=== PATIENT | male | born 1990 | race Caucasian/White ===

== ENCOUNTER 2017-01-14 10:35 | Inpatient (IN) | payer OTHER ==
[~2017-01-14] VITALS: Ht 182.9 cm; Wt 70.8 kg
[2017-01-14 12:15] VITALS: BP 136/89
--- NOTE | 2017-01-14 12:30 | NUR ---
PRE-ASSESSMENT: PT IS A 26 YO MALE. FACE IS FLUSHED. GAIT IS STEADY. HE REPORTS PMH ANXIETY,INSOMNIA AND DEPRESSION. HE STATES HE HAD A SEIZURE FROM BZO W/D 4 YRS AGO. HE REPORTS DRINKING VODKA 750 ML DAILY OR 2-3 BOTTLES OF WINE DAILY. LAST DRANK A HALF BOTTLE OF WINE AT 1100. HE ALSO REPORTS TAKING 0.5 MG FOR ATIVAN FOR 6 DAYS. LAST USED 0.5 MG TODAY AT 1030. MEDS BROUGHT IN FOR SLEEP,ANXIETY AND DEPRESSION. WILL ASSESS PT UPSTAIRS ON UNIT.
[2017-01-14] MEDS ORDERED: LORAZEPAM 2 MG/1 ML VIAL IM PRN (14:00)
[2017-01-14] MEDS ORDERED: MIRALAX 17 GM POWD.PACK PO PRN (14:00)
[2017-01-14] MEDS ORDERED: LOPERAMIDE HCL 2 MG CAPSULE PO PRN ×2 (14:00)
[2017-01-14] MEDS ORDERED: THIAMINE HCL 200 MG/2 ML VIAL IM ONE (14:00)
[2017-01-14] MEDS ORDERED: MAG HYDROX/AL HYDROX/SIMETH 30 ML LIQUID UDC PO PRN (14:00)
[2017-01-14] MEDS ORDERED: DICYCLOMINE HCL 20 MG TABLET PO PRN (14:00)
[2017-01-14] MEDS ORDERED: NICOTINE POLACRILEX 4 MG GUM-PK OF TEN BC PRN (14:00)
[2017-01-14] MEDS ORDERED: LORAZEPAM 1 MG TABLET PO PRN ×2 (14:00)
[2017-01-14] MEDS ORDERED: DOCUSATE SODIUM 250 MG CAPSULE PO PRN (14:00)
[2017-01-14] MEDS ORDERED: ONDANSETRON 4 MG/2 ML VIAL IM PRN (14:00)
[2017-01-14 14:06] LABS: *AMPHETAMINE, URINE NEGATIVE (NEGATIVE); *BARBITURATE, URINE NEGATIVE (NEGATIVE); *CANNABINOID, URINE NEGATIVE (NEGATIVE); *COCCAINE, URINE NEGATIVE (NEGATIVE); *OPIATE, URINE NEGATIVE (NEGATIVE); *PHENCYCLIDINE SCREEN,URINE NEGATIVE (NEGATIVE)
--- NOTE | 2017-01-14 14:40 | NUR ---
ADMISSION: A 26 YO MALE ADMITTED FOR SUPERVISED DETOX OF ETOH . SKIN WARM DRY AND INTACT. FACE FLUSHED.HE REPORTS DRINKING VODKA 750 ML DAILY OR 2-3 BOTTLES OF WINE DAILY. LAST DRANK A HALF BOTTLE OF WINE AT 1100. HE ALSO REPORTS TAKING 0.5 MG FOR ATIVAN FOR 6 DAYS. LAST USED 0.5 MG TODAY AT 1030.HE HAS BEEN DRINKING AND USING IN THIS PATTERN FOR 6 WEEKS. HE STATES HE SMOKES POT ON OCCASION. HE REPORTS HE HAD 2 YEARS OF SOBRIETY AND HAS BEEN SOBER ON AND OFF FOR THE LAST YEAR. HIS LAST TX CENTER WAS IN MAY AT [facility] IN [place]. PT IS DISHEVELED. HE IS ODOROUS OF ETOH. HE STATES HE IS INTOXICATED AND IS NOT EXPERIENCING S/S OF W/D OF YET. HE REPORTS HX OF INSOMNIA,ANXIETY AND DEPRESSION. HE DENIES S/I AND H/I. HE STATES HE TAKES WELLBUTRIN XL ,VYVANSE ,REMERON AND WAS TAKING LYRICA FOR ANXIETY. HE BROUGHT MEDS IN WITH HIM TO FACILITY. HE STATES HE WAS LIVING AT A NON STRUCTURED SOBER LIVING THAT KNEW HE WAS DRINKING. ENCOURAGED INCREASED FLUIDS. ORIENTED PT TO STAFF AND UNIT. WILL PROVIDE SAFE AND SUPPORTIVE ENVIRONMENT.MD ASSESSED PT WILL MEDICATE ACCORDINGLY PER MD.
[2017-01-14 15:29] LABS: BASOPHILS % (AUTO) 0.3 % (0.0-2.0); BILIRUBIN,TOTAL 0.4 mg/dL (0.2-1.0); CREATININE 0.8 mg/dL (0.6-1.3); EOSINOPHILS % (AUTO) 0.5 % (0.0-7.0); HEMATOCRIT 43.1 % (40-50); HEMOGLOBIN 14.9 G/DL (14.0-18.0); LYMPHOCYTES # (AUTO) 2.3 K/UL (0.8-4.8); LYMPHOCYTES % (AUTO) 44.3 % (20.5-51.5); MAGNESIUM 1.7 mg/dL (1.8-2.4); MEAN CORPUSCULAR HEMOGLOBIN 29.9 UUG (27.0-31.0); MEAN CORPUSCULAR HGB CONC 35 g/dL (32.0-37.0); MEAN CORPUSCULAR VOLUME 86.8 FL (82.0-92.0); MONOCYTES # (AUTO) 0.5 K/UL (0.1-1.30); MONOCYTES % (AUTO) 9.2 % (0.0-11.0); NEUTROPHILS # (AUTO) 2.5 K/UL (1.8-8.9); NEUTROPHILS % (AUTO) 45.7 % (38.5-71.5); PLATELET COUNT (AUTO) 154 K/UL (150-450); POTASSIUM 4.3 mmol/L (3.5-5.1); RED BLOOD CELL COUNT(AUTO) 4.96 MIL/UL (4.7-6.1); TOTAL PROTEIN, SERUM 7.3 g/dL (6.4-8.2); WHITE BLOOD COUNT (AUTO) 5.3 K/UL (4.0-11.2)
[2017-01-14] MEDS: LORAZEPAM 1 MG TABLET PO SCH ×2 (16:31→20:32)
[2017-01-14] MEDS ORDERED: LORAZEPAM 1 MG TABLET PO ONE (18:00)
--- NOTE | 2017-01-14 19:16 | NUR ---
START OF SHIFT NOTE: Patient is 26 year old male admitted to [facility] on 01/14/2017 for Alcohol dependence, continue ordered 5 Day Ativan Taper. Patient tolerated well without ASE. Patient remains compliant with treatment, medications, and diet regime. Patient reports allergy to Penicillin. Patient is on Full Code, Regular Diet, Fall and Seizures Precautions. 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 Upon endorsement, patient is in his room alert and oriented x4. Speech is soft and clear. Patient denies SI/HI. CIWA 12. Patient presented with moderate anxiety, agitation, nervousness, restlessness, enlarged pupils, generalized body aching, headache, sweating, and tremors. VS: T: 98.3, HR: 72, BP: 144/86, RR: 19, RA O2Sat 98%, generalized body aches pain level"9" by 0-10 adult pain scale. Respirations are unlabored and even. Patient denies chest pain and SOB. Lung Sounds are clear thoroughly. Abdomen is soft and non-tender. Bowel Sounds are active in all 4 quadrants. Skin is intact, warm and dry to touch. All needs met. Safety measures in place: Call light within reach, bed in lowest position and locked, padded rails up x2. Patient is endorsed by day shift nurse, report received. Will continue to monitor closely.
--- NOTE | 2017-01-14 19:16 | NUR ---
END OF SHIFT: NEWLY ADMITTED PT RESTING IN BED. MEDICATED WITH ATIVAN 2 MG PO X 2. FIRST DOSE INEFFECTIVE AT 1645. NEXT DOSE EFFECTIVE. HE IS LAYING IN BED AND STATES HE FEELS A LITTLE BETTER. LAST CI 11. PSYCH MD ASSESSED PT AND RECONCILED MEDS. WILL PASS SHIFT REPORT TO ONCOMING NIGHT NURSE.
[2017-01-14 20:00] VITALS: BP 144/86
[2017-01-14] MEDS: ACETAMINOPHEN 325 MG TABLET PO PRN (20:32)
[2017-01-14] MEDS: diphenhydrAMINE 50 MG CAPSULE PO PRN (20:32)
--- NOTE | 2017-01-14 20:32 | NUR ---
PRN BENADRYL 50 MG 1 TAB PO AND PRN TYLENOL 650 MG 2 TAB PO ADMINISTRATION Patient c/o insomnia and generalized body aches pain level "9/10". PRN Benadryl 50 mg 1 tab PO for insomnia and PRN Tylenol 650 mg 2 tab PO for pain administrated as ordered with full glass of water. Patient tolerated well. All needs met. Safety measures in place: Call light within reach, bed in lowest position and locked, padded rails up x2. Patient is endorsed by day shift nurse, report received. Will continue to monitor closely.
[2017-01-14] MEDS: MIRTAZAPINE 15 MG TABLET PO SCH (20:33)
--- NOTE | 2017-01-14 20:36 | NUR ---
PRN ZOFRAN (ONDANSETRON) 4 MG/2ML IM ADMINISTRATION PRN ZOFRAN (ONDANSETRON) 4 MG/2ML IM FOR NAUSEA AND VOMITING X4 ADMINISTRATED ON RIGHT DELTOID MUSCLE. PATIENT TOLERATED WELL. ALL NEEDS MET. SAFETY MEASURES IN PLACE: CALL LIGHT WITHIN REACH, BED IN LOWEST POSITION AND LOCKED, PADDED RAILS UP X2. WILL TO MONITOR CLOSELY.
[2017-01-14] MEDS ORDERED: MAGNESIUM OXIDE 400 MG TABLET PO ONE (21:00)
--- NOTE | 2017-01-14 21:16 | NUR ---
RE-ASSESSMENT PATIENT DENIES NAUSEA AND VOMITING. PRN ZOFRAN (ONDANSETRON) 4 MG/2ML IM ADMINISTRATED FOR NAUSEA AND VOMITING X4 @2035 WAS EFFECTIVE. ALL NEEDS MET. SAFETY MEASURES IN PLACE: CALL LIGHT WITHIN REACH, BED IN LOWEST POSITION AND LOCKED, PADDED RAILS UP X2. WILL TO MONITOR CLOSELY.
--- NOTE | 2017-01-14 21:32 | NUR ---
RE-ASSESSMENT Patient is sleeping. Respirations even and unlabored. RR 17. PRN Benadryl 50 mg 1 capsule PO for insomnia and PRN Tylenol 650 mg 2 tab PO for pain administrated @2031 were effective. All needs met. Safety measures on place. Call light within reach, bed in lowest position and locked, padded rails up bilaterally rails up bilaterally. Will continue to monitor closely.
[2017-01-15] VITALS: BP 127/82
[2017-01-15 04:00] VITALS: BP 149/92
[2017-01-15 07:06] LABS: HEPATITIS B SURFACE AG Negative (Negative)
--- NOTE | 2017-01-15 07:06 | NUR ---
END OF SHIFT NOTE: Patient is 26 year old male admitted to [facility] on 01/14/2017 for medically supervised safety withdrawal from Alcohol, continue 5 Day Ativan Taper. Patient tolerated well without ASE. Patient reports allergy to Penicillin. Patient is on Full Code, Regular Diet, Fall and Seizures Precautions. PMH: Anxiety, Depression, Alcohol dependence, Insomnia, Withdrawal Induced from Librium Seizures History (2013. Last CIWA 5 @0400. Patient presented with anxiety, agitation, nervousness, restlessness, enlarged pupils, generalized body aching, headache, sweating, and tremors. CIWA taken when patient 's awake. Last VS @0400: T:98.7, BP: 149/92, HR: 77, RA SPO2: 100%, RR 16, head and shoulders pain level "6/10". Patient denies SI/HI. Respirations unlabored and even. Patient denied SOB and chest pain. Abdomen is soft and non-tender. Skin is intact, warm, and dry to touch. PRN Benadryl 50 mg 1 capsule PO for insomnia administrated @2031, PRN Tylenol 650 mg 2 tab PO for pain administrated @2031, and PRN Zofran (Ondansetron) 4 mg/2ml IM for nausea and vomiting x4 administrated @2035, were effective. Patient remains compliant with treatment, medications, and diet regime. Patient slept 8 hours, intake 1,000 ml, voided x2, stool x1. Encouraged fluids intake as tolerated. Encouraged to attending groups activities. All needs met. Safety measures on place. Call light within reach, bed in lowest position and locked, padded rails up bilaterally. Patient endorsed to day shift nurse. Report given.
--- NOTE | 2017-01-15 07:36 | NUR ---
START OF SHIFT Received report from caustic cresylate shift superintendent nurse. 26 year old male patient admitted on 01/14/17 for ETOH withdrawals. Pt has been started on a 5 day Ativan taper and is tolerating well. S/S of withdrawals are being managed by ordered medications. Pt reports hx of insomnia, anxiety and depression. Most recent CIWA is 5. PRN Zofran, Tylenol and Benadryl administered and effective. V/S remain WNL. Pt slept for 8 hours. All needs met at this time, safety measures are in place, will continue to monitor.
[2017-01-15 08:12] VITALS: BP 148/95
[2017-01-15] MEDS ORDERED: PREGABALIN 100 MG CAPSULE PO SCH (09:00)
[2017-01-15] MEDS ORDERED: PREGABALIN 50 MG CAPSULE PO SCH (09:00)
[2017-01-15] MEDS ORDERED: TUBERCULIN,PURIF.PROT.DERIV. 5 TU/0.1 ML TEST ID ONE (09:00)
[2017-01-15] MEDS ORDERED: PREGABALIN 25 MG CAPSULE PO SCH (09:00)
[2017-01-15] MEDS: THIAMINE HCL 100 MG TABLET PO SCH (09:24)
[2017-01-15] MEDS: FOLIC ACID 1 MG TABLET PO SCH (09:25)
[2017-01-15] MEDS: buPROPion XL 150 MG TAB.SR.24H PO SCH (09:25)
[2017-01-15] MEDS: MULTIVITAMINS,THERAPEUTIC TABLET PO SCH (09:25)
[2017-01-15] MEDS: LORAZEPAM 1 MG TABLET PO SCH ×3 (09:25→20:25)
[2017-01-15] MEDS: ONDANSETRON ODT 4 MG TAB.RAPDIS SL PRN ×2 (09:27→10:40)
--- NOTE | 2017-01-15 09:27 | NUR ---
PRN ZOFRAN Pt reports nausea but no emesis noted. PRN Zofran administered as ordered, will reassess.
--- NOTE | 2017-01-15 09:57 | NUR ---
REASSESSMENT Pt reports Zofran was effective.
[2017-01-15] MEDS ORDERED: MIRT30TA PO (11:32)
[2017-01-15] MEDS ORDERED: LISD50CA2 PO (11:32)
[2017-01-15] MEDS ORDERED: BUPR300T52 PO (11:32)
[2017-01-15 12:46] VITALS: BP 138/84
[2017-01-15] MEDS: IBUPROFEN 400 MG TABLET PO PRN (15:04)
--- NOTE | 2017-01-15 15:05 | NUR ---
PRN Motrin Pt c/o 08/23 headache, Motrin PO administered as ordered. Will reassess.
--- NOTE | 2017-01-15 16:05 | NUR ---
REASSESSMENT Pt denies headache and reports medication was effective.
[2017-01-15 17:43] VITALS: BP 131/88
--- NOTE | 2017-01-15 19:14 | NUR ---
START OF SHIFT NOTE: Patient is 26 year old male admitted to [facility] on 01/14/2017 for Alcohol dependence Patient continues 5 Day Ativan Taper, and tolerated well without ASE. Patient remains compliant with treatment, medications, and diet regime. Patient reports allergy to Penicillin. Patient is on Full Code, Regular Diet, Fall and Seizures Precautions. PMH: Anxiety, Depression, Alcohol dependence, Insomnia, Seizures History (2012) r/t withdrawal Induced from Librium. Upon endorsement, patient' assessed in his room. Patient is alert and oriented x4. Patient is cooperative. Speech is clear and soft. CIWA 8: Patient's presented with anxiety, agitation, nervousness, restlessness, enlarged pupils, generalized body aching, barely sweating, and tremors. Patient denies SI/HI. VS: T: 99.1, HR: 95, BP: 146/87, RR: 18, RA O2Sat 98%, generalized body aches pain level: "7" by 0-10 adult pain scale. Respirations are unlabored and even. Patient denies chest pain and SOB. Lung Sounds are clear thoroughly. Abdomen is soft and non-tender. Bowel Sounds are active in all 4 quadrants. Patient denies N/V/D. Skin is intact, warm and dry to touch. Encouraged fluids intake as tolerated. Encouraged to attend groups activities. All needs met. Safety measures in place: Call light within reach, bed in lowest position and locked, padded rails up x2. Patient is endorsed by day shift nurse, report received. Will continue to monitor closely.
--- NOTE | 2017-01-15 19:14 | NUR ---
END OF SHIFT Endorsed to night nurse. 26 year old male patient admitted on 01/14/17 for ETOH withdrawals. Pt has been started on a 5 day Ativan taper and is tolerating well. S/S of withdrawals are being managed by ordered medications. Pt reports hx of insomnia, anxiety and depression. Most recent CIWA is 7. PRN Zofran, and Motrin administered and effective. V/S remain WNL. Pt rested in bed most of the day, encouraged to attend groups and activities. All needs met at this time, safety measures are in place, night nurse will continue to monitor.
[2017-01-15 20:00] VITALS: BP 146/87
[2017-01-15] MEDS: MIRTAZAPINE 15 MG TABLET PO SCH (20:24)
[2017-01-15] MEDS: PREGABALIN 50 MG CAPSULE PO SCH (20:24)
[2017-01-15] MEDS: diphenhydrAMINE 50 MG CAPSULE PO PRN (22:26)
--- NOTE | 2017-01-15 22:26 | NUR ---
PRN BENADRYL 50 MG 1 TAB PO ADMINISTRATION Patient c/o insomnia. PRN Benadryl 50 mg 1 tab PO for insomnia administrated as ordered with full glass of water. Patient tolerated well. All needs met. Safety measures in place: Call light within reach, bed in lowest position and locked, padded rails up x2. Patient is endorsed by day shift nurse, report received. Will continue to monitor closely. Addendum: 01/16/17 at 0027 by RAFIQ SNIDER RN PRN Benadryl 50 mg 1 cap. PO
--- NOTE | 2017-01-15 23:26 | NUR ---
RE-ASSESSMENT Patient is sleeping. Respirations even and unlabored. RR 16. PRN Benadryl 50 mg 1 cap. PO for insomnia administrated @2226 was effective. All needs met. Safety measures on place. Call light within reach, bed in lowest position and locked, padded rails up bilaterally rails up bilaterally. Will continue to monitor closely.
[2017-01-16] VITALS: BP 133/79
[2017-01-16] MEDS: IBUPROFEN 400 MG TABLET PO PRN ×2 (00:51→18:40)
--- NOTE | 2017-01-16 00:51 | NUR ---
PRN MOTRIN 400 MG 1 TAB. PO ADMINISTRATION Patient c/o back and shoulders pain. Patient reports pain level "7/10"and asked aid. PRN Motrin 400 mg 1 tab. PO administrated as ordered with full glass of water. Patient tolerated well. All needs met. Safety measures on place. Call light within reach, bed in lowest position and locked, padded rails up bilaterally rails up bilaterally. Will continue to monitor closely.
--- NOTE | 2017-01-16 01:51 | NUR ---
RE-ASSESSMENT Patient is sleeping. Respirations even and unlabored. RR 14. PRN Motrin 400 mg 1 tab PO administrated to patient @0051 for back and shoulders pain was effective. All needs met. Safety measures on place. Call light within reach, bed in lowest position and locked, padded rails up bilaterally. Will continue to monitor closely.
[2017-01-16 04:00] VITALS: BP 131/76
--- NOTE | 2017-01-16 06:58 | NUR ---
END OF SHIFT NOTE: Patient is 26 year old male admitted to [facility] on 01/14/2017 for medically supervised safety withdrawal from Alcohol, continue 5 Day Ativan Taper. Patient tolerated well without ASE. Patient reports allergy to Penicillin. Patient is on Full Code, Regular Diet, Fall and Seizures Precautions. Last CIWA decreased from 8 @2000 to 3 @0400: Patient presented with anxiety, agitation, nervousness, restlessness, body aching, sweating, and tremors. CIWA taken when patient 's awake. Last VS @0400: T:98.3, BP: 131/76, HR: 69, RA SPO2: 98%, RR 16, back and shoulders pain level "6/10". Patient denies SI/HI. Respirations unlabored and even. Patient denied SOB and chest pain. Abdomen is soft and non-tender. Skin is intact, warm, and dry to touch. PRN Benadryl 50 mg 1 capsule PO for insomnia administrated @2226 and PRN Motrin 400 mg 1 tab PO for back and shoulders pain administrated @0051 were effective. Patient remains compliant with treatment, medications, and diet regime. Patient slept 9 hours, intake 958 ml, voided x3. Encouraged fluids intake as tolerated. Encouraged to attending groups activities. All needs met. Safety measures on place. Call light within reach, bed in lowest position and locked, padded rails up bilaterally. Patient endorsed to day shift nurse. Report given.
--- NOTE | 2017-01-16 07:59 | NUR ---
START OF SHIFT NOTE Received report from night nurse, 26 year old female patient admitted for ETOH withdrawal. Pt cont on a 5 day Ativan taper. Pt reports PMH of insomnia, anxiety and depression. Per endorsement pt received PRN Benadryl/Motrin effective per night nurse, last CIWA-3, slept for 9 hours. Patient received awake, alert and oriented x4, Educated patient regarding plan of care for the day and medication regimen with good verbal understanding. Safety measures in place. call light with in reach, will continue to monitor.
[2017-01-16 08:00] VITALS: BP 130/80
[2017-01-16] MEDS: FOLIC ACID 1 MG TABLET PO SCH (09:15)
[2017-01-16] MEDS: LORAZEPAM 1 MG TABLET PO SCH ×4 (09:16→21:04)
[2017-01-16] MEDS: THIAMINE HCL 100 MG TABLET PO SCH (09:16)
[2017-01-16] MEDS: buPROPion XL 150 MG TAB.SR.24H PO SCH (09:16)
[2017-01-16] MEDS: MULTIVITAMINS,THERAPEUTIC TABLET PO SCH (09:16)
[2017-01-16] MEDS: PREGABALIN 50 MG CAPSULE PO SCH ×2 (10:06→21:05)
--- NOTE | 2017-01-16 10:16 | NUR ---
Therapist prompted client about group times. Client plans to start attending group therapy today.
[2017-01-16 12:00] VITALS: BP 132/76
[2017-01-16 16:00] VITALS: BP 128/72
--- NOTE | 2017-01-16 18:40 | NUR ---
ATIVAN ONE TIME Patient reported anxiety, agitation, tremors, nausea, Sweats, CIWA score noted -9, medicated patient with PRN Motrin 400mg Po and Ativan 2mg x1 order. Will cont to monitor and reassess. Addendum: 01/16/17 at 1913 by NATHANIEL MALONE LVN Patient also c/o of back ache 06/23.
[2017-01-16] MEDS ORDERED: LORAZEPAM 1 MG TABLET PO ONE (18:45)
--- NOTE | 2017-01-16 19:26 | NUR ---
END OF SHIFT NOTE Patient cont on 5 days Ativan taper tolerating well. Patient presented with anxiety agitation, sweats, nausea, Scheduled medication administered noted to be effective. Patient received PRN Motrin/ Ativan one time. Pt Encouraged Po fluids as tolerated. Pt's last CIWA score was 4 at 1600. Vital signs WNL. All needs met. Patient attended groups and activities. Safety measures in place, call light within reach. Pt endorsed to night nurse in stable condition. Endorse to night nurse reassess the patient for Ativan and Motrin.
--- NOTE | 2017-01-16 19:40 | NUR ---
REASSESSMENT PRN MEDICATIONS: Patient unavailable at this time for reassessment, as he is now in PM group session.
[2017-01-16 20:00] VITALS: BP 147/102
--- NOTE | 2017-01-16 20:00 | NUR ---
1999 Patient awake, alert and just returning to his room # [id number] from [facility] in recreation room. Gait is brisk, steady. Patient responds to nurse's greeting and introduction, with good eye contact and, " Hi, I'm doing okay. How are you?" Patient is oriented to person, place, day, date, time and his personal situation. Patient's color is pink and his skin is clean, warm, dry and intact. Patient states that he is eating his regular diet meal trays " okay" and taking various fluids ad bel with no gastric issues noted presently. Patient denies any specific discomforts, however he states that emotionally, he is feeling badly, because, " My fiancee broke up with me today, because I did something bad, that I shouldn't have and he is really pissed off". Patient states further, " I've never been through anything like this before". Patient allowed to ventilate his feelings and then positive encouragement and calm reassurances given to him, as he began to cry a bit. Patient states, " Well, I know him and it will be okay eventually. For now though, my sobriety is more important to me, you know?" Vital signs are: 97.8-87-18 147/102, O2 Sat 99%, CIWA 3 . Patient voices no requests for anything at this time. Patient was admitted on 01/14/17 for Alcohol withdrawal and he is currently on a 5-Day Ativan medication taper, which he is apparently tolerating well thus far. Fall/seizure precautions continue. Bed is locked and in lowest position, bed rails are up X 2 and call light on bed.
[2017-01-16] MEDS: MIRTAZAPINE 15 MG TABLET PO SCH (21:05)
[2017-01-16] MEDS: diphenhydrAMINE 50 MG CAPSULE PO PRN (21:05)
[2017-01-16] MEDS: ACETAMINOPHEN 325 MG TABLET PO PRN (21:05)
--- NOTE | 2017-01-16 21:05 | NUR ---
PRN MEDICATIONS: Prn Benadryl 50 mg p.o. given per request for sleep medication and Prn Tylenol 650 mg p.o. given per c/o back of head and neck pain, 7/10 pain scale. Patient states, "The motrin I had earlier, around six thirty, really didn't help that much. Maybe it went from a 8 to a 7 after I took it".
--- NOTE | 2017-01-16 22:05 | NUR ---
REASSESSMENT PRN MEDICATIONS: Patient is sleeping in low semi-fowlers position of comfort, with eyes closed and respirations quiet, even, unlabored at 12.
--- NOTE | 2017-01-17 | NUR ---
Patient sleeping soundly and does not wish to be awakened for V/S and CIWA to be done at this time. V/S, CIWA deferred.
--- NOTE | 2017-01-17 04:00 | NUR ---
Patient continues to sleep soundly with eyes closed and respirations even, unlabored at 12. V/S, CIWA deferred.
--- NOTE | 2017-01-17 06:30 | NUR ---
0630 Patient slept a total of 8 hours and he had 3 voids and no stools. Total intake was 1,000 ml p.o. Prn medications given noted separately per floor protocol. V/SS, afebrile, last CIWA 2 at 1999. Patient is presently sleeping comfortably in stable condition with eyes closed and respirations even at 12.
--- NOTE | 2017-01-17 07:43 | NUR ---
START OF SHIFT NOTE Received report from night nurse, 26 year old female patient admitted for ETOH dependence. Patient cont on a 5 day Ativan taper. Patient reports PMH of insomnia, anxiety and depression. Per endorsement pt received PRN Benadryl/Tylenol effective per night nurse, last CIWA-2, slept for 8 hours. Patient received awake, alert and oriented x4, Educated patient regarding plan of care for the day and medication regimen with good verbal understanding. Safety measures in place. call light with in reach, will continue to monitor.
[2017-01-17 08:00] VITALS: BP 133/75
[2017-01-17] MEDS: buPROPion XL 150 MG TAB.SR.24H PO SCH (09:11)
[2017-01-17] MEDS: LORAZEPAM 1 MG TABLET PO SCH ×3 (09:11→21:15)
[2017-01-17] MEDS: FOLIC ACID 1 MG TABLET PO SCH (09:11)
[2017-01-17] MEDS: PREGABALIN 50 MG CAPSULE PO SCH ×2 (09:11→21:15)
[2017-01-17] MEDS: THIAMINE HCL 100 MG TABLET PO SCH (09:12)
[2017-01-17] MEDS: MULTIVITAMINS,THERAPEUTIC TABLET PO SCH (09:16)
[2017-01-17 12:00] VITALS: BP 136/86
[2017-01-17] MEDS: CLONIDINE HCL 0.1 MG TABLET PO PRN ×2 (12:48→21:16)
--- NOTE | 2017-01-17 12:48 | NUR ---
PRN CLONIDINE Patient blood pressure noted 148/98, Medicated patient with PRN Clonidine 0.1mg Po as ordered. Will cont to monitor and reassess.
--- NOTE | 2017-01-17 13:48 | NUR ---
CLONIDINE REASSESSMENT Blood pressure noted 137/84 medication effective. Patient in stable condition.
[2017-01-17] MEDS ORDERED: INFLUENZA VACCINE 2017-2018 0.5 ML DISP.SYRIN IM ONE (15:15)
[2017-01-17 16:00] VITALS: BP 138/88
--- NOTE | 2017-01-17 19:11 | NUR ---
END OF SHIFT NOTE Patient cont on 5 days Ativan taper tolerating well. Patient presented with anxiety agitation, sweats, nausea, Scheduled medication administered noted to be effective. Patient received PRN Clonidine for increased blood pressure noted to be effective. Pt Encouraged Po fluids as tolerated. Pt's last CIWA score was 5 at 1600. Vital signs WNL. All needs met. Patient attended groups and activities. Safety measures in place, call light within reach. Pt endorsed to night nurse in stable condition.
[2017-01-17 20:00] VITALS: BP 153/95
--- NOTE | 2017-01-17 20:00 | NUR ---
1999 Patient received awake, alert and returning to his room # 322 from recreation room. Gait is brisk and steady. Upon seeing nurse, patient states, " Nobody showed up tonight for the group". Patient oriented to person, place, day, date, time and his personal situation. Patient's color is pink and his skin is clean, warm, dry and intact. Patient states that he had a somewhat ' stress-filled day', but he ' is going to make it better'. Vital signs are: 98.5-110-18 153/95, O2 Sat 99%, CIWA 4. Patient states that he continues to eat his regular diet meal trays, drink various fluids ad bel and follow his therapeutic plan as consistently as he is able to. Patient denies any pain or other discomfort, and he voices no requests for anything at this time. Patient was admitted on 01/14/17 for Alcohol withdrawal and he is currently on a 5-Day Ativan medication taper, which he is apparently tolerating well thus far. Bed is locked and in lowest position, bed rails are up X 1 and call light on patient's bed. Fall/seizure precautions continue.
[2017-01-17] MEDS: MIRTAZAPINE 15 MG TABLET PO SCH (21:15)
[2017-01-17] MEDS: diphenhydrAMINE 50 MG CAPSULE PO PRN (21:15)
--- NOTE | 2017-01-17 21:15 | NUR ---
PRN MEDICATION: Prn Benadryl 50 mg p.o. given per request for sleep medication.
--- NOTE | 2017-01-17 21:16 | NUR ---
PRN MEDICATION: Prn Catapres 0.1 mg p.o. given for B/P 153/95. Patient otherwise offers no c/o any discomfort and he is asymptomatic.
--- NOTE | 2017-01-17 22:16 | NUR ---
REASSESSMENT PRN MEDICATIONS: Patient is sleeping soundly, in semi-fowlers position of comfort, with eyes closed and respirations quiet, even, unlabored at 12.
--- NOTE | 2017-01-18 | NUR ---
Patient sleeping soundly with deep, quiet, even respirations noted at 12. Patient does not wish to be awakened for V/S to be done at this time. CIWA ordered Q 4hrs while awake. V/S, CIWA deferred.
--- NOTE | 2017-01-18 04:00 | NUR ---
Patient continues to sleep soundly and comfortably, with eyes closed and respirations quiet, even, unlabored at 12. V/S, CIWA deferred.
--- NOTE | 2017-01-18 06:30 | NUR ---
0630 Patient slept a total of 8 hours and he had 1 void and no stools. Total intake was 980 ml p.o. Prn medications given noted separately per floor protocol. V/SS afebrile, last CIWA 4 at 1999. Patient is presently sleeping in stable condition with eyes closed and respirations regular at 12.
[2017-01-18 07:20] LABS: CREATININE 0.9 mg/dL (0.6-1.3); MAGNESIUM 1.9 mg/dL (1.8-2.4); PHOSPHOROUS 5.1 mg/dL (2.5-4.9); POTASSIUM 4.4 mmol/L (3.5-5.1)
[2017-01-18 08:00] VITALS: BP 109/67
--- NOTE | 2017-01-18 08:06 | NUR ---
START OF SHIFT NOTE Received report from night nurse, 26 year old female patient admitted for ETOH dependence. Patient cont on a 5 day Ativan taper. Patient reports PMH of insomnia, anxiety and depression. Per endorsement pt received PRN Benadryl/Clonidine effective per night nurse, last CIWA-4, slept for 8 hours. Patient received awake, alert and oriented x4, Educated patient regarding plan of care for the day and medication regimen with good verbal understanding. Safety measures in place. call light with in reach, will continue to monitor.
[2017-01-18] MEDS: buPROPion XL 150 MG TAB.SR.24H PO SCH (09:15)
[2017-01-18] MEDS: PREGABALIN 50 MG CAPSULE PO SCH ×2 (09:15→20:44)
[2017-01-18] MEDS: THIAMINE HCL 100 MG TABLET PO SCH (09:16)
[2017-01-18] MEDS: MULTIVITAMINS,THERAPEUTIC TABLET PO SCH (09:16)
[2017-01-18] MEDS: FOLIC ACID 1 MG TABLET PO SCH (09:16)
[2017-01-18] MEDS: LORAZEPAM 1 MG TABLET PO SCH ×2 (09:16→20:43)
[2017-01-18 12:00] VITALS: BP 155/97
[2017-01-18] MEDS: CLONIDINE HCL 0.1 MG TABLET PO PRN ×2 (12:18→22:21)
--- NOTE | 2017-01-18 12:18 | NUR ---
PRN CLONIDINE Patient blood pressure noted 155/97, Medicated patient with PRN Clonidine 0.1mg Po as ordered. Will cont to monitor and reassess.
--- NOTE | 2017-01-18 13:18 | NUR ---
CLONIDINE REASSESSMENT Blood pressure noted 139/87, Clonidine effective.
[2017-01-18] MEDS: NICOTINE 14 MG/24HR PATCH TD PRN (14:19)
--- NOTE | 2017-01-18 14:20 | NUR ---
NICOTINE PATCH Pt requested Nicotine patch, placed on left arm. Education provided.
[2017-01-18 16:00] VITALS: BP 132/88
--- NOTE | 2017-01-18 18:58 | NUR ---
END OF SHIFT NOTE Patient cont on 5 days Ativan taper tolerating well. Patient presented with anxiety agitation, sweats, scheduled medication administered noted to be effective. Patient received PRN Clonidine for increased blood pressure noted to be effective. Pt Encouraged Po fluids as tolerated. Pt's last CIWA score was 4 at 1600. Vital signs WNL. All needs met. Patient attended groups and activities. Safety measures in place, call light within reach. Pt endorsed to night nurse in stable condition.
--- NOTE | 2017-01-18 19:00 | NUR ---
Start of Shift Pt is a 26 year old male admitted for ETOH dependence, placed on 5 day Ativan taper. Pt reported consuming Vodka 750ml/daily or 2-3 bottles of wine daily. PMH: Insomnia, anxiety and depression. Pt reports allergies to PCN, regular diet, fall/seizure precautions (4 yrs ago d/t Librium withdrawal) and full code. Upon assessment, pt presents with anxiety, reports feeling chills and hot/cold throughout body, restlessness, skin clammy and face flushed, respirations even/unlabored, denies SOB/chest pain, denies n/v/d, medications due. Safety measures in place, call light within reach, side rails up x2, bed locked and in low position. Will continue to monitor.
[2017-01-18] MEDS: HYDROXYZINE PAMOATE 25 MG CAPSULE PO PRN (19:17)
--- NOTE | 2017-01-18 19:17 | NUR ---
PRN Administration Pt reports feeling anxious, requests relief. Vistaril 25mg PRN administered. Safety measures in place, will continue to monitor.
[2017-01-18 20:00] VITALS: BP 145/87
--- NOTE | 2017-01-18 20:17 | NUR ---
PRN Reassessment Upon reassessment, pt reports relief of anxiety. Needs met, safety measures in place, will continue to monitor.
[2017-01-18] MEDS: MIRTAZAPINE 15 MG TABLET PO SCH (20:43)
[2017-01-18 22:21] VITALS: BP 146/100
[2017-01-18] MEDS: IBUPROFEN 400 MG TABLET PO PRN (22:21)
--- NOTE | 2017-01-18 22:21 | NUR ---
PRN Administration Pt reports feeling anxious with head ache rated 7/10. BP 146/100, pulse 88. Clonidine 0.1mg PRN and Motrin 400mg PRN administered. Safety measures in place, will continue to monitor.
[2017-01-18 23:21] VITALS: BP 132/89
--- NOTE | 2017-01-18 23:21 | NUR ---
PRN Reassessment Upon reassessment, pt reports relief of headache. BP 132/89, pulse 82. Needs met, safety measures in place, will continue to monitor.
[2017-01-19] VITALS: BP 130/82
--- NOTE | 2017-01-19 04:00 | NUR ---
HARIWA deferred d/t pt sleeping, to assess while pt is awake as ordered. Pt refused to be woken up for [address], will continue to monitor.
--- NOTE | 2017-01-19 07:00 | NUR ---
End of Shift Pt is a 26 year old male admitted for ETOH dependence, placed on 5 day Ativan taper. Pt reported consuming Vodka 750ml/daily or 2-3 bottles of wine daily. PMH: Insomnia, anxiety and depression. Pt reports allergies to PCN, regular diet, fall/seizure precautions (4 yrs ago d/t Librium withdrawal) and full code. During shift, pt presented with anxiety, reported feeling chills and hot/cold throughout body, restlessness, skin clammy and face flushed scheduled taper medications administered, CIWA 4. Vistaril 25mg PRN, Clonidine 0.1mg PRN and Motrin 400mg PRN administered for anxiety and headache, effective. No PRN medications administered during shift. Pt slept for 7 hours, intake of 1105 ml PO, voids x2 and stool x0. Safety measures in place, call light within reach, side rails up x2, bed locked and in low position. Endorsed to day shift nurse.
[2017-01-19 08:00] VITALS: BP 123/69
--- NOTE | 2017-01-19 08:38 | NUR ---
Start of shift note; Received report from night nurse. Patient is a 26 year old male admitted on 01/14/17 for ETOH dependence. Patient was placed on 5 day Ativan taper. Patient reported history of insomnia, anxiety, depression. Patient reported allergies to PCN, on full code status and regular diet. Patient had an uneventful night. Patient is on fall and seizure precaution. Bed in lowest position, call light within reach. Will continue to monitor patient.
[2017-01-19] MEDS: FOLIC ACID 1 MG TABLET PO SCH (09:32)
[2017-01-19] MEDS: buPROPion XL 150 MG TAB.SR.24H PO SCH (09:32)
[2017-01-19] MEDS: THIAMINE HCL 100 MG TABLET PO SCH (09:32)
[2017-01-19] MEDS: MULTIVITAMINS,THERAPEUTIC TABLET PO SCH (09:32)
[2017-01-19] MEDS: PREGABALIN 50 MG CAPSULE PO SCH ×2 (09:33→20:17)
[2017-01-19] MEDS: CLONIDINE HCL 0.1 MG TABLET PO PRN ×3 (10:18→22:48)
--- NOTE | 2017-01-19 10:21 | NUR ---
PRN medication; Patient's appears anxious and agitated with BP of 138/98. PRN Clonidine 0.1mg PO given for BP over 140/90. Will continue to monitor patient.
--- NOTE | 2017-01-19 11:21 | NUR ---
Re-assessment; Patient is AOx4. Patient appears calm and comfortable. Patient's BP noted to be 120/75 at this time. PRN Clonidine noted to be effective.
[2017-01-19 12:00] VITALS: BP 130/79
[2017-01-19] MEDS: HYDROXYZINE PAMOATE 25 MG CAPSULE PO PRN ×2 (13:33→21:13)
--- NOTE | 2017-01-19 13:33 | NUR ---
PRN medication; Patient appears to be very anxious, pacing back and forth in the room. PRN Vistaril 25mg PO PRN given for anxiety. will continue to monitor patient.
--- NOTE | 2017-01-19 14:33 | NUR ---
Re-assessment; Patient appears calm and comfortable at this time. PRN medication noted to be effective.
[2017-01-19 16:00] VITALS: BP 142/96
--- NOTE | 2017-01-19 16:33 | NUR ---
PRN medication; Patient appears to be very anxious, BP of 142/96. PRN Clonidine 0.1mg PO PRN given for BP over 140/90. Will continue to monitor patient.
--- NOTE | 2017-01-19 17:33 | NUR ---
Re-assessment; Patient is calm and comfortable with BP of 124/72. PRN medication noted to be effective.
--- NOTE | 2017-01-19 18:23 | NUR ---
End of shift note; Patient is AOx4. Patient is a 26 year old male admitted on 01/14/17 for ETOH dependence. Patient was placed on 5 day Ativan taper. Patient reported history of insomnia, anxiety, depression. Patient reported allergies to PCN, on full code status and regular diet. Patient remained compliant with treatment plan and medication regime. Medications were effective in reducing withdrawal symptoms. Patient is medically cleared for discharge tomorrow. All safety measures secured. Met all needs.
[2017-01-19 20:00] VITALS: BP 146/84
--- NOTE | 2017-01-19 20:00 | NUR ---
Start of Shift Pt is a 26 year old male admitted for ETOH dependence, placed on 5 day Ativan taper completed. Pt reported consuming Vodka 750ml/daily or 2-3 bottles of wine daily. PMH: Insomnia, anxiety and depression. Pt reports allergies to PCN, regular diet, fall/seizure precautions (4 yrs ago d/t Librium withdrawal) and full code. Upon assessment, pt presents with anxiety and restlessness, skin clammy and face flushed, respirations even/unlabored, denies SOB/chest pain, denies n/v/d, medications due. Pt is scheduled for discharge tomorrow. Safety measures in place, call light within reach, side rails up x2, bed locked and in low position. Will continue to monitor.
[2017-01-19] MEDS: MIRTAZAPINE 15 MG TABLET PO SCH (20:17)
[2017-01-19] MEDS: NICOTINE 14 MG/24HR PATCH TD PRN (21:13)
--- NOTE | 2017-01-19 21:13 | NUR ---
PRN Administration Pt reports feeling anxious and request nicotine patch. Vistaril 25mg PRN and Nicotine patch PRN administered. Safety measures in place, will continue to monitor.
--- NOTE | 2017-01-19 22:13 | NUR ---
PRN Reassessment Pt reports feeling calmer, pt states that Vistaril was effective. Needs met, safety measures in place, will continue to monitor.
[2017-01-19] MEDS ORDERED: HYDR-3895 PO (22:29)
[2017-01-19] MEDS ORDERED: CLON0.1T14 PO (22:29)
[2017-01-19] MEDS ORDERED: PREG50CA PO (22:29)
--- NOTE | 2017-01-19 22:48 | NUR ---
PRN Administration Pt reports to feel anxious again. Pt states, "I get a rushing feeling, then I get anxious again". BP 142/99, pulse 86. Clonidine 0.1mg PRN administered. Safety measures in place, will continue to monitor.
--- NOTE | 2017-01-19 23:48 | NUR ---
PRN Reassessment Upon reassessment, pt is sleeping in bed, eyes closed, respirations even/unlabored. Safety measures in place, will continue to monitor.
[2017-01-20] VITALS: BP 125/68
--- NOTE | 2017-01-20 | NUR ---
CIWA deferred d/t pt sleeping, to assess while pt is awake as ordered. BP 124/68, pulse 84, resp 17, SpO2 100% room air, temp 98.[address], will continue to monitor.
[2017-01-20] MEDS: HYDROXYZINE PAMOATE 25 MG CAPSULE PO PRN (06:13)
--- NOTE | 2017-01-20 06:13 | NUR ---
PRN Reassessment Pt verbalizes feeling "at ease". Needs met, safety measures in place, will continue to monitor. Addendum: 01/20/17 at 0720 by SEB GUTIERREZ RN [facility] TIME OF REASSESSMENT
--- NOTE | 2017-01-20 06:13 | NUR ---
PRN Vistaril Pt verbalizes feeling anxious, requests relief. Vistaril 25mg PRN administered. Safety measures in place, will continue to monitor.
--- NOTE | 2017-01-20 07:13 | NUR ---
PRN Reassessment Pt verbalizes feeling "at ease". Needs met, safety measures in place, will continue to monitor.
--- NOTE | 2017-01-20 07:15 | NUR ---
End of Shift Pt is a 26 year old male admitted for ETOH dependence, placed on 5 day Ativan taper completed. Pt reported consuming Vodka 750ml/daily or 2-3 bottles of wine daily. PMH: Insomnia, anxiety and depression. Pt reports allergies to PCN, regular diet, fall/seizure precautions (4 yrs ago d/t Librium withdrawal) and full code. During shift, pt presented with anxiety and restlessness, skin clammy and face flushed scheduled medications administered, CIWA 2. Vistaril 25mg x2 PRN, Clonidine 0.1mg PRN and Nicotine patch PRN administered. Pt is scheduled for discharge tomorrow. Pt slept for 8 hours, intake of 1150 ml PO, voids x3 and stool x0. Safety measures in place, call light within reach, side rails up x2, bed locked and in low position. Endorsed to day shift nurse.
--- NOTE | 2017-01-20 07:47 | NUR ---
START OF SHIFT Received report from night nurse. 26 year old male patient admitted on 01/14/17 for ETOH withdrawals. Pt has completed 5 day Ativan taper and is medically cleared for discharge. Pt does not present with acute discomfort and is compliant with therapeutic treatment plan. Reports hx of insomnia, anxiety and depression. PRN Clonidine, Vistaril (x2) and Nicotine patch administered. Most recent CIWA is 2. Pt slept for 8 hours. V/S remain WNL. Safety measures are in place, will continue to monitor.
[2017-01-20 08:13] VITALS: BP 129/77
[2017-01-20] MEDS: FOLIC ACID 1 MG TABLET PO SCH (08:24)
[2017-01-20] MEDS: MULTIVITAMINS,THERAPEUTIC TABLET PO SCH (08:26)
[2017-01-20] MEDS: buPROPion XL 150 MG TAB.SR.24H PO SCH (08:26)
[2017-01-20] MEDS: THIAMINE HCL 100 MG TABLET PO SCH (08:26)
[2017-01-20] MEDS: PREGABALIN 50 MG CAPSULE PO SCH (08:26)
[2017-01-20 08:31] VITALS: BP 126/77
[2017-01-20] MEDS: CLONIDINE HCL 0.1 MG TABLET PO PRN (08:31)
--- NOTE | 2017-01-20 08:31 | NUR ---
PRN CLONIDINE/PRN MOTRIN Pt c/o anxiety r/t d/c and headache 05/24. PRN Clonidine and Motrin administered as ordered. Will reassess.
[2017-01-20] MEDS: IBUPROFEN 400 MG TABLET PO PRN (08:32)
--- NOTE | 2017-01-20 09:30 | NUR ---
D/C NOTE Pt is A/O x4. V/S remain WNL. Pt denies SI/HI or hallucinations. Pt shows no s/s of acute withdrawal at this time, and is stable. has medically cleared pt for d/c. Education on Hepatitis C, smoking cessation and medication side effects provided. Pt verbalizes understanding. All pt belongings are in belonging bag, including prescriptions, and home medications. Refuses PNU vaccination, FLU vaccination administered. Pt states that Clonidine and Motrin were effective, warm pack provided for muscle ache. Pt is being accompanied by [facility] at this time to be transported to rehab. All needs met.
== END 2017-01-20 09:30 | DRG 895 ==
LOC: SRC 11:31
PROVIDERS: ADMIT Internal Medicine; ATTEND Internal Medicine
PROC: HZ2ZZZZ Detoxification Services for Substance Abuse Treatment (ICD-10-PCS; principal; 2017-01-14)
PROC: HZ41ZZZ Group Counseling for Substance Abuse Treatment, Behavioral (ICD-10-PCS; 2017-01-15)
PROC: HZ31ZZZ Individual Counseling for Substance Abuse Treatment, Behavioral (ICD-10-PCS; 2017-01-16)
DX: F10.230 Alcohol dependence with withdrawal, uncomplicated (principal); K70.10 Alcoholic hepatitis without ascites; I15.9 Secondary hypertension, unspecified; E83.42 Hypomagnesemia; F12.90 Cannabis use, unspecified, uncomplicated; F17.210 Nicotine dependence, cigarettes, uncomplicated; F90.9 Attention-deficit hyperactivity disorder, unspecified type; Y90.7 Blood alcohol level of 200-239 mg/100 ml; F41.0 Panic disorder [episodic paroxysmal anxiety]; G47.00 Insomnia, unspecified; F32.9 Major depressive disorder, single episode, unspecified; Z82.49 Family history of ischemic heart disease and other diseases of the circulatory system; Z81.1 Family history of alcohol abuse and dependence; Z81.8 Family history of other mental and behavioral disorders; R73.9 Hyperglycemia, unspecified
CPT/HCPCS: 36415; 70030-TC; 80307; 80346; 83735; 84100; 85025; 86580; 86592; 86705; 86803; 87340; 87806; 90686; G0480; J2405; J3411; Q0162; Q0163